=== PATIENT | female | born 1990 | race Caucasian/White ===

== ENCOUNTER → 2023-06-26 12:44 | Outpatient (REF) | payer BC, SELFPAY | LOC: HWRAD 12:44 | PROVIDERS: ATTENDING PHYSICIAN Student in an Organized Health Care Education/Training Program | DX: R10.9 Unspecified abdominal pain (principal) | CPT/HCPCS: 74176 ==

== ENCOUNTER 2024-04-01 16:43 | Emergency (ER) | payer BC, SELFPAY ==
[2024-04-01 16:46] VITALS: BP 163/112
--- NOTE | 2024-04-01 16:49 | ED.GENMED ---
ED Provider Triage
<Chanelle Lim PA-C - Last Filed: 04/01/24 16:55>
-
Patient seen by provider in Triage?: Seen in Triage
Attestation: A medical screening examination has been initiated by a qualified medical provider. Based on the assessment performed at this time, it has been determined that an emergent medical condition may exist and the patient has been informed
that further medical evaluation and possible additional diagnostic testing may be needed.
HPI: 33yoF here with diarrhea x 4 days. 8-10 watery bowel movements daily. No vomiting, fevers, abd pain. Saw PCP yesterday and dropped off stool testing this morning. Remote history of C.diff 10 years ago. No recent abx.
GENERAL: Alert , in no apparent distress
EYE: No visual abnormalities.
NECK: Trachea midline
ENT: No visible abnormalities.
LUNGS: No acute respiratory distress
NEUROLOGICAL: Alert and oriented
SKIN: Skin intact. No visible changes.
MUSCULOSKELETAL: Moving extremities normally
PSYCH: Normal and appropriate interaction.
This is a medical evaluation conducted in person to initiate diagnostic evaluation and provide initial therapeutics. Please see further documentation by the treating clinician.
CBC, CMP, magnesium, and HCG ordered.
History of Present Illness
<Chanelle Lim PA-C - Last Filed: 04/01/24 16:55>
General
Chief Complaint: Abdominal Symptoms
Time Seen by Provider: 04/01/24 18:35
<Corbin Baez Jr., PA-C - Last Filed: 04/01/24 18:59>
General
Source: patient and spouse
Exam Limitations: none
Nursing documentation reviewed up to this point in time: agreed with
History of Present Illness
History of Present Illness:
33-year-old female past medical history of anxiety presenting to the emergency department today with concerns of diarrhea over the past 4 days described as 8 loose bowel movements per day since no vomiting has had an appetite able to drink plenty of
fluids. Able to have some soup but having trouble eating due to immediate diarrhea secondary to this. Denies any abdominal pain fevers chest pain shortness of breath.
Past History
<Chanelle Lim PA-C - Last Filed: 04/01/24 16:55>
Past History
ED Past Medical History: None
ED Past Surgical History: None
Social History
Tobacco: Non-smoker
Alcohol: Occasional
Personal: Single
Living: with family
Review of Systems
<Corbin Baez Jr., PA-C - Last Filed: 04/01/24 18:59>
Review of Systems
Allergies reviewed?: Yes
All Other Systems: ROS reviewed and negative except as documented in HPI and ROS
Phy Exam
<Corbin Baez Jr., PA-C - Last Filed: 04/01/24 18:59>
Physical Exam
Physical Exam:
GENERAL: Alert , in no apparent distress
EYE: pupils equal and reactive
NECK: Supple, no significant adenopathy.
ENT: o/p clr, mmm.
CARDIAC: Regular rate and rhythm .
LUNGS: Clear breath sounds bilaterally, no acute respiratory distress, no wheezes/rales/rhonchi
ABDOMEN: Soft, without focal tenderness, no r/g, no cvat
NEUROLOGICAL: Alert and oriented, no focal neuro deficits
SKIN: Warm and dry, skin intact.
MUSCULOSKELETAL: No edema, well perfused.
PSYCH: Normal and appropriate interaction.
Course
<Chanelle Lim PA-C - Last Filed: 04/01/24 16:55>
Orders/Labs/Results
Orders:
Orders
04/01/24 16:55
Test Result ONCE
04/01/24 16:58
Complete Blood Count/With Diff Urgent
Comprehensive Metabolic Panel Urgent
HCG, Serum Qualitative Screen Urgent
Magnesium Urgent
04/01/24 18:50
Dicyclomine [Bentyl] 20 mg PO NOW STA
Loperamide [Imodium] 4 mg PO NOW STA
Ondansetron Orally Disint [Zofran Odt (Orally Disintegrating)] 4 mg PO NOW STA
Abnormal Lab Results
04/01/24
16:58
Absolute Neuts (auto) 7.0 H 10^3/uL
(1.4-6.5)
Carbon Dioxide 21 L mmol/L
(22-30)
BUN 5 L mg/dl
(7-17)
Glucose 111 H mg/dl
(70-99)
Total Protein 8.3 H g/dl
(6.3-8.2)
Albumin 5.3 H g/dl
(3.5-5.0)
04/01/24 16:58
04/01/24 16:58
Vital Signs
Initial and Last Documented VS:
Initial Vital Signs
Temp Pulse Resp BP Pulse Ox
97.9 F 115 20 163/112 98
04/01/24 16:46 04/01/24 16:46 04/01/24 16:46 04/01/24 16:46 04/01/24 16:46
Last Documented Vital Signs
Temp Pulse Resp BP Pulse Ox
97.9 F 115 20 163/112 98
04/01/24 16:46 04/01/24 16:46 04/01/24 16:46 04/01/24 16:46 04/01/24 16:46
<Corbin Baez Jr., PA-C - Last Filed: 04/01/24 18:59>
Orders/Labs/Results
Orders:
Orders
04/01/24 16:55
Test Result ONCE
04/01/24 16:58
Complete Blood Count/With Diff Urgent
Comprehensive Metabolic Panel Urgent
HCG, Serum Qualitative Screen Urgent
Magnesium Urgent
04/01/24 18:50
Dicyclomine [Bentyl] 20 mg PO NOW STA
Loperamide [Imodium] 4 mg PO NOW STA
Ondansetron Orally Disint [Zofran Odt (Orally Disintegrating)] 4 mg PO NOW STA
Abnormal Lab Results
04/01/24
16:58
Absolute Neuts (auto) 7.0 H 10^3/uL
(1.4-6.5)
Carbon Dioxide 21 L mmol/L
(22-30)
BUN 5 L mg/dl
(7-17)
Glucose 111 H mg/dl
(70-99)
Total Protein 8.3 H g/dl
(6.3-8.2)
Albumin 5.3 H g/dl
(3.5-5.0)
04/01/24 16:58
04/01/24 16:58
Vital Signs
Initial and Last Documented VS:
Initial Vital Signs
Temp Pulse Resp BP Pulse Ox
97.9 F 115 20 163/112 98
04/01/24 16:46 04/01/24 16:46 04/01/24 16:46 04/01/24 16:46 04/01/24 16:46
Last Documented Vital Signs
Temp Pulse Resp BP Pulse Ox
97.9 F 115 20 163/112 98
04/01/24 16:46 04/01/24 16:46 04/01/24 16:46 04/01/24 16:46 04/01/24 16:46
<Corbin Baez Jr., PA-C - Last Filed: 04/01/24 18:59>
MDM/Problems Addressed
MDM/Problems Addressed:
33-year-old female presenting to the emergency department with concerns of diarrhea over the past 4 days. 8 episodes per day loose and sometimes green no overt blood no pain no fevers. Initially somewhat tachycardic but improved without specific
treatment. No abdominal pain no red flag symptoms of diarrhea. She has stool samples pending currently as an outpatient labs did not show any significant electrolyte abnormality or severe dehydration. She is able to tolerate by mouth. She was
given symptomatic treatment and otherwise is stable for outpatient management. Return precautions given.
<Corbin Baez Jr., PA-C - Last Filed: 04/01/24 18:59>
*Critical Care Note
Total Time (30-74mins, 75-104mins- exclusive of procedures): Not Applicable
ED Attending Note
<Chanelle Lim PA-C - Last Filed: 04/01/24 16:55>
-
Portions of this chart may have been created with voice recognition software.� Occasional wrong word or��sound alike� substitutions may have occurred due to the inherent limitations of voice recognition software.
Discharge Plan
Departure
Patient Disposition: Home (Routine Discharge)
Date of Disposition: 04/01/24
Time of Disposition: 18:58
Patient with high blood pressure during this ER visit?: Yes
Condition: Good
Covid-19: Not Applicable
Discharge Problem:
Diarrhea
Instructions: Diarrhea in teens and adults
Prescriptions:
New
ondansetron 4 mg tablet,disintegrating
4 mg PO Q6H PRN (Reason: nausea and vomiting) Qty: 7 0RF
dicyclomine 20 mg tablet
20 mg PO QID Qty: 10 0RF
loperamide [Imodium A-D] 2 mg capsule
2 mg PO Q6H PRN (Reason: loose stool) Qty: 7 0RF
No Action
ibuprofen [Advil] 200 MG tablet
400 mg PO BIDPRN PRN (Reason: mild pain)
tramadol 50 MG tablet
50 mg PO Q8HPRN PRN (Reason: pain) Qty: 20 0RF
phenazopyridine 100 MG tablet
100 mg PO BID Qty: 20 0RF
levofloxacin 500 MG tablet
500 mg PO DAILY Qty: 3 0RF
Activity Restrictions/Additional Instructions:
You came to the emergency department today with concerns of ongoing diarrhea. Please take the prescribed medications help with symptoms and otherwise follow-up closely as an outpatient. Return to the emergency department for any worsening, new or
concerning symptoms.
Interventions
Interventions:
*General Assessment Last Done: 04/01/24 16:46
Discharge Date and Time
Print Language: MALTESE
[2024-04-01 17:10] LABS: % Basophils 0.4 % (0-2); % Eosinophils 1.3 % (0-6); % Immature Granulocytes 0.3 % (0-0.5); % Lymphocytes 20.5 % (20.5-51.1); % Monocytes 5.8 % (1.7-9.3); % Neutrophils 71.7 % (42.2-75.2); Absolute Eosinophils 0.1 10^3/uL (0-0.7); Absolute Monocytes 0.6 10^3/uL (0.1-0.6); Hematocrit 40.4 % (37.0-47.0); Hemoglobin 14.3 g/dL (12.0-16.0); Mean Corp Hgb Conc. 35.4 g/dL (33.0-37.0); Mean Corpuscular Hgb 30.4 pg (27.0-31.0); Mean Platelet Volume 9.6 fL (7.4-10.4); Nucleated Red Blood Cells % 0 %; Platelet Count 251 10^3/uL (130-400); Red Cell Dist. Width 11.9 % (11.5-14.5); White Blood Cell Count 9.8 10^3/uL (4.8-10.8)
[2024-04-01 17:16] LABS: HCG, Serum Qualitative Screen Negative
[2024-04-01 17:21] LABS: ALT (SGPT) 15 U/L (0-35); AST (SGOT) 18 U/L (14-36); Albumin 5.3 g/dl (3.5-5.0); Alkaline Phosphatase 42 U/L (38-126); Blood Urea Nitrogen 5 mg/dl (7-17); Calcium 9.8 mg/dl (8.4-10.2); Carbon Dioxide 21 mmol/L (22-30); Chloride 106 mmol/L (98-107); Glucose 111 mg/dl (70-99); Magnesium 2.1 mg/dl (1.6-2.3); Potassium 3.5 mmol/L (3.5-5.1); Sodium 141 mmol/L (135-145); Total Bilirubin 0.9 mg/dl (0.2-1.3); Total Protein 8.3 g/dl (6.3-8.2); eGFR > 60.00
[2024-04-01] MEDS: BENTYL 20 MG PO (18:55)
[2024-04-01] MEDS: IMODIUM 4 MG PO (18:55)
[2024-04-01] MEDS: ZOFRAN ODT (ORALLY DISINTEGRATING) 4 MG PO (18:56)
[2024-04-01 19:00] VITALS: BMI 18.8
[2024-04-01 19:05] VITALS: BP 137/89
== END 2024-04-01 19:13 | disposition home or self-care (01) ==
LOC: EMR 16:43
PROVIDERS: Physician Assistant; EMERGENCY PHYSICIAN Student in an Organized Health Care Education/Training Program; FAMILY PHYSICIAN Physician Assistant Medical
DX: R19.7 Diarrhea, unspecified (principal)
CPT/HCPCS: 99283; 80053; 83735; 84703; 85025

== ENCOUNTER 2024-04-06 17:02 | Emergency (ER) | payer BC, SELFPAY ==
[2024-04-06] VITALS (8 sets, daily range): BP systolic 102–158; BP diastolic 69–112
--- NOTE | 2024-04-06 17:20 | ED.GENMED ---
Addendum entered and electronically signed by Thang Hogue PA-C 04/07/24 10:17:
Notified pt of + C diff, vancomycin PO sent to pharmacy
Original Note:
ED Provider Triage
<Chanelle Lim PA-C - Last Filed: 04/06/24 20:38>
-
Patient seen by provider in Triage?: Seen in Triage
Attestation: A medical screening examination has been initiated by a qualified medical provider. Based on the assessment performed at this time, it has been determined that an emergent medical condition may exist and the patient has been informed
that further medical evaluation and possible additional diagnostic testing may be needed.
HPI: 33yoF here with ongoing diarrhea. Seen in ED last week for the same. Had outpatient stool studies last week but still has not received the results. Having 6 BMs/day. Also c/o nausea, abd cramping, and new chest pain today. Hx of C.diff.
GENERAL: Alert , in no apparent distress
EYE: No visual abnormalities.
NECK: Trachea midline
ENT: No visible abnormalities.
LUNGS: No acute respiratory distress
NEUROLOGICAL: Alert and oriented
SKIN: Skin intact. No visible changes.
MUSCULOSKELETAL: Moving extremities normally
PSYCH: Normal and appropriate interaction.
This is a medical evaluation conducted in person to initiate diagnostic evaluation and provide initial therapeutics. Please see further documentation by the treating clinician.
Abdominal labs, magnesium, troponin/EKG, and stool studies ordered.
History of Present Illness
<Chanelle Lim PA-C - Last Filed: 04/06/24 20:38>
General
Chief Complaint: Abdominal Symptoms
Time Seen by Provider: 04/06/24 18:48
<Robert Rm PA-C - Last Filed: 04/06/24 23:02>
General
Source: patient
History of Present Illness
History of Present Illness:
33-year-old female with past medical history of kidney stones presenting to the emergency department for evaluation of 10 days of diarrhea noting she has had approximately 6 episodes per day, sometimes watery, intermittently loose accompanied with
some abdominal cramping and nausea but no vomiting. Patient states she has been on a few different antibiotics throughout the year but nothing within the last few months and does note she was recently in [place] for the [place] but no
other recent travel or known sick contacts. Patient did have stool studies done this past Thursday with her primary care provider but still does not have the results and due to continued symptoms decided come to the ER tonight. She denies any
fevers, chills, rigors. She does note that she has been able to eat and drink however has maintained a low residue diet. Family history is noted for grandmother having colon cancer but otherwise no Crohn's or ulcerative colitis.
Past History
<Chanelle Lim PA-C - Last Filed: 04/06/24 20:38>
Past History
ED Past Medical History: None
ED Past Surgical History: None
Social History
Tobacco: Non-smoker
Alcohol: Occasional
Personal: Single
Living: with family
<Robert Rm PA-C - Last Filed: 04/06/24 23:02>
Past History
ED Past Medical History: Other (Kidney stone)
Social History
Drug: None
Review of Systems
<Robert Rm PA-C - Last Filed: 04/06/24 23:02>
Review of Systems
All Other Systems: ROS reviewed and negative except as documented in HPI and ROS
Phy Exam
<Robert Rm PA-C - Last Filed: 04/06/24 23:02>
Physical Exam
Physical Exam:
GENERAL: Alert , in no apparent distress
EYE: clear conjunctiva b/l
HEAD: NCAT
ENT: o/p clr, mmm.
CARDIAC: Tachycardic rate and rhythm, no murmur.
LUNGS: Clear breath sounds bilaterally, no acute respiratory distress, no wheezes/rales/rhonchi
ABDOMEN: Soft, without focal tenderness, no r/g, no cvat
NEUROLOGICAL: Alert and oriented
SKIN: Warm and dry, skin intact.
MUSCULOSKELETAL: No edema, well perfused.
PSYCH: Normal and appropriate interaction.
Scores
<Robert Rm PA-C - Last Filed: 04/06/24 23:02>
Heart Failure Risk
Heart Failure Risk Score: Not Applicable
Heart Score for Chest Pain Patients
STEMI patient?: Not applicable
Withdrawal Assessment of Alcohol
Withdrawal Assessment Completed?: Not applicable
Course
<Chanelle Lim PA-C - Last Filed: 04/06/24 20:38>
Orders/Labs/Results
Orders:
Orders
04/06/24 17:06
Test Result ONCE
04/06/24 17:07
Electrocardiogram (*1) Urgent
Reason for Study: Chest Pain
EKG- Treatment ONCE
04/06/24 17:17
C-Reactive Protein Urgent
Comment: ADD ON
Complete Blood Count/With Diff Urgent
Comprehensive Metabolic Panel Urgent
Erythrocyte Sed Rate Urgent
Comment: ADD ON
HCG, Serum Qualitative Screen Urgent
Lipase Urgent
Magnesium Urgent
Troponin I Urgent
04/06/24 19:11
Add On- LAB Urgent
Tests Added?: ESR/CRP
0.9% Sodium Chloride 1000 ml [Nss] 1,000 ml IV BOLUS
Iohexol [Omnipaque] See Protocol PO NOW STA
04/06/24 19:13
CT Abd/pel W Iv And Oral Contr Urgent
Comment:
Reason For Exam: persistent diarrhea, lower abd pain
04/06/24 20:58
CDIFF [C difficile Antigen & Toxins] Urgent
RADHA Source: Feces/Stool
Specimen Description:
Date Specimen was Collected: 04/06/24
Time Specimen was Collected: 20:56
Norovirus by PCR Urgent
RADHA Source: Feces/Stool
Specimen Description:
Date Specimen was Collected: 04/06/24
Time Specimen was Collected: 20:56
Stool Culture Urgent
RADHA Source: Feces/Stool
Specimen Description:
Date Specimen was Collected: 04/06/24
Time Specimen was Collected: 20:56
Abnormal Lab Results
04/06/24
17:17
Absolute Neuts (auto) 6.7 H 10^3/uL
(1.4-6.5)
Absolute Monos (auto) 0.7 H 10^3/uL
(0.1-0.6)
Lymphocytes % 20.4 L %
(20.5-51.1)
BUN 4 L mg/dl
(7-17)
Glucose 120 H mg/dl
(70-99)
Total Protein 8.4 H g/dl
(6.3-8.2)
Albumin 5.3 H g/dl
(3.5-5.0)
04/06/24 17:17
04/06/24 17:17
Vital Signs
Initial and Last Documented VS:
Initial Vital Signs
Temp Pulse Resp BP Pulse Ox
98.2 F 118 20 158/112 100
04/06/24 17:07 04/06/24 17:07 04/06/24 17:07 04/06/24 17:07 04/06/24 17:07
Last Documented Vital Signs
Temp Pulse Resp BP Pulse Ox
98.2 F 80 12 102/69 99
04/06/24 17:07 04/06/24 22:15 04/06/24 22:15 04/06/24 22:00 04/06/24 22:15
<Robert Rm PA-C - Last Filed: 04/06/24 23:02>
Orders/Labs/Results
Orders:
Orders
04/06/24 17:06
Test Result ONCE
04/06/24 17:07
Electrocardiogram (*1) Urgent
Reason for Study: Chest Pain
EKG- Treatment ONCE
04/06/24 17:17
C-Reactive Protein Urgent
Comment: ADD ON
Complete Blood Count/With Diff Urgent
Comprehensive Metabolic Panel Urgent
Erythrocyte Sed Rate Urgent
Comment: ADD ON
HCG, Serum Qualitative Screen Urgent
Lipase Urgent
Magnesium Urgent
Troponin I Urgent
04/06/24 19:11
Add On- LAB Urgent
Tests Added?: ESR/CRP
0.9% Sodium Chloride 1000 ml [Nss] 1,000 ml IV BOLUS
Iohexol [Omnipaque] See Protocol PO NOW STA
04/06/24 19:13
CT Abd/pel W Iv And Oral Contr Urgent
Comment:
Reason For Exam: persistent diarrhea, lower abd pain
04/06/24 20:58
CDIFF [C difficile Antigen & Toxins] Urgent
RADHA Source: Feces/Stool
Specimen Description:
Date Specimen was Collected: 04/06/24
Time Specimen was Collected: 20:56
Norovirus by PCR Urgent
RADHA Source: Feces/Stool
Specimen Description:
Date Specimen was Collected: 04/06/24
Time Specimen was Collected: 20:56
Stool Culture Urgent
RADHA Source: Feces/Stool
Specimen Description:
Date Specimen was Collected: 04/06/24
Time Specimen was Collected: 20:56
Abnormal Lab Results
04/06/24
17:17
Absolute Neuts (auto) 6.7 H 10^3/uL
(1.4-6.5)
Absolute Monos (auto) 0.7 H 10^3/uL
(0.1-0.6)
Lymphocytes % 20.4 L %
(20.5-51.1)
BUN 4 L mg/dl
(7-17)
Glucose 120 H mg/dl
(70-99)
Total Protein 8.4 H g/dl
(6.3-8.2)
Albumin 5.3 H g/dl
(3.5-5.0)
04/06/24 17:17
04/06/24 17:17
Vital Signs
Initial and Last Documented VS:
Initial Vital Signs
Temp Pulse Resp BP Pulse Ox
98.2 F 118 20 158/112 100
04/06/24 17:07 04/06/24 17:07 04/06/24 17:07 04/06/24 17:07 04/06/24 17:07
Last Documented Vital Signs
Temp Pulse Resp BP Pulse Ox
98.2 F 80 12 102/69 99
04/06/24 17:07 04/06/24 22:15 04/06/24 22:15 04/06/24 22:00 04/06/24 22:15
<Robert Rm PA-C - Last Filed: 04/06/24 23:02>
MDM/Problems Addressed
Differential Diagnosis Includes:
Colitis, C. difficile, other infectious diarrhea, ulcerative colitis, Crohn's disease, dehydration, electrolyte derangement
MDM/Problems Addressed:
33-year-old female presenting the ER for evaluation of 10 days of diarrhea/loose stool. Outpatient studies performed however no results since Thursday. No fevers, no known sick contacts. No risk factors for C. difficile. Labs initiated in triage
show no leukocytosis and normal chemistry. Will add on inflammatory markers as well as CT scan of the abdomen and pelvis. Will obtain stool studies here as well. Disposition pending
<Robert Rm PA-C - Last Filed: 04/06/24 23:02>
*Radiology
Radiology exam reviewed: radiology read reviewed
*Pulse Oximetry
Patient hypoxic: no
*Critical Care Note
Total Time (30-74mins, 75-104mins- exclusive of procedures): Not Applicable
<Robert Rm PA-C - Last Filed: 04/06/24 23:02>
Patient Management
Social determinants of health affecting care: Living situation and Strong social support
Escalation/DeEscalation of care consider admission/obs:
Patient CT scan shows pancolitis. We discussed risk versus benefit of starting antibiotics prior to the results of the stool studies being performed and patient is okay waiting for the stool studies prior to starting any medications. I provided
her with information for GI to follow-up with as an outpatient. Continue BRAT diet. Aware of return precautions to the ER. Stable for discharge home.
ED Attending Note
<Chanelle Lim PA-C - Last Filed: 04/06/24 20:38>
-
Portions of this chart may have been created with voice recognition software.� Occasional wrong word or��sound alike� substitutions may have occurred due to the inherent limitations of voice recognition software.
Discharge Plan
Departure
Patient Disposition: Home (Routine Discharge)
Date of Disposition: 04/06/24
Time of Disposition: 22:22
Patient with high blood pressure during this ER visit?: Yes
Discharge Problem:
Colitis
Instructions: Diarrhea in teens and adults
Prescriptions:
No Action
ibuprofen [Advil] 200 MG tablet
400 mg PO BIDPRN PRN (Reason: mild pain)
tramadol 50 MG tablet
50 mg PO Q8HPRN PRN (Reason: pain) Qty: 20 0RF
phenazopyridine 100 MG tablet
100 mg PO BID Qty: 20 0RF
levofloxacin 500 MG tablet
500 mg PO DAILY Qty: 3 0RF
ondansetron 4 mg tablet,disintegrating
4 mg PO Q6H PRN (Reason: nausea and vomiting) Qty: 7 0RF
dicyclomine 20 mg tablet
20 mg PO QID Qty: 10 0RF
loperamide [Imodium A-D] 2 mg capsule
2 mg PO Q6H PRN (Reason: loose stool) Qty: 7 0RF
Referrals:
Rose Tom PA-C [Family Provider] -
Eugene Noguera DO [Active] - (Please call for appointment)
Interventions
Interventions:
*Risk Screen - Suicide Last Done: 04/06/24 17:03
*General Assessment Last Done: 04/06/24 18:46
*Neglect/Abuse Screening Last Done: 04/06/24 17:03
ED- Fall Risk Assessment Last Done: 04/06/24 22:28
*ED COVID-19 Vaccine History Last Done: 04/06/24 18:46
*Nursing Disposition Last Done: 04/06/24 22:28
ZM-Gcihno-Krzzzykuci Assessment Last Done: 04/06/24 18:46
Discharge Date and Time
Discharge Date/Time: 04/06/24 22:29
Print Language: PORTUGUESE
[2024-04-06 17:35] LABS: HCG, Serum Qualitative Screen Negative
[2024-04-06 17:39] LABS: ALT (SGPT) 15 U/L (0-35); AST (SGOT) 21 U/L (14-36); Albumin 5.3 g/dl (3.5-5.0); Alkaline Phosphatase 55 U/L (38-126); Blood Urea Nitrogen 4 mg/dl (7-17); Calcium 9.9 mg/dl (8.4-10.2); Carbon Dioxide 22 mmol/L (22-30); Chloride 102 mmol/L (98-107); Glucose 120 mg/dl (70-99); Lipase 69 U/L (23-300); Magnesium 2.1 mg/dl (1.6-2.3); Potassium 3.5 mmol/L (3.5-5.1); Sodium 137 mmol/L (135-145); Total Bilirubin 0.8 mg/dl (0.2-1.3); Total Protein 8.4 g/dl (6.3-8.2); eGFR > 60.00
[2024-04-06 17:51] LABS: Hematocrit 41.6 % (37.0-47.0); Hemoglobin 15.1 g/dL (12.0-16.0); Mean Corp Hgb Conc. 36.3 g/dL (33.0-37.0); Mean Corpuscular Hgb 29.8 pg (27.0-31.0); Mean Corpuscular Volume 82.1 fL (81.0-99.0); Mean Platelet Volume 9.6 fL (7.4-10.4); Platelet Count 299 10^3/uL (130-400); Red Blood Cell Count 5.07 10^6/uL (4.20-5.40); Red Cell Dist. Width 11.7 % (11.5-14.5); White Blood Cell Count 9.5 10^3/uL (4.8-10.8)
[2024-04-06 17:55] LABS: % Basophils 0.4 % (0-2); % Eosinophils 0.9 % (0-6); % Immature Granulocytes 0.3 % (0-0.5); % Lymphocytes 20.4 % (20.5-51.1); % Monocytes 7.2 % (1.7-9.3); % Neutrophils 70.8 % (42.2-75.2); Absolute Eosinophils 0.1 10^3/uL (0-0.7); Absolute Lymphocytes 1.9 10^3/uL (1.2-3.4); Absolute Monocytes 0.7 10^3/uL (0.1-0.6); Absolute Neutrophils 6.7 10^3/uL (1.4-6.5); Nucleated Red Blood Cells % 0 %
[2024-04-06 17:57] LABS: Troponin I < 0.012 ng/ml
[2024-04-06] MEDS: OMNIPAQUE 50 ML PO (19:20)
[2024-04-06] MEDS: NSS 1000 IV (19:29)
[2024-04-06 19:40] LABS: Erythrocyte Sed Rate 8 mm/hour (0-20)
[2024-04-06 19:51] LABS: C-Reactive Protein < 5.00 mg/L (0.0-10.00)
== END 2024-04-06 22:29 | disposition home or self-care (01) ==
LOC: EMR 17:02
PROVIDERS: Physician Assistant; EMERGENCY PHYSICIAN Emergency Medicine; FAMILY PHYSICIAN Physician Assistant Medical
DX: A04.72 Enterocolitis due to Clostridium difficile, not specified as recurrent (principal); R03.0 Elevated blood-pressure reading, without diagnosis of hypertension
CPT/HCPCS: 99285; 96360; 74177; 80053; 83690; 83735; 84484; 84703; 85025; 85652; 86140; 87045; 87046; 87324; 87427; 87449; 87798; 93005; Q9967